=== PATIENT | male | born 1975 | race Hispanic/Latino ===

== ENCOUNTER 2016-07-24 12:55 | Emergency (ER) | payer OTHER ==
[~2016-07-24] VITALS: Ht 170.2 cm; Wt 91.2 kg
[~2016-07-24 12:55] MED LIST: DIAZ2TAB PO; HYDR-4003 PO; IBUP-1827 PO
[2016-07-24 12:59] VITALS: BP 134/83; PULSE 95; RESP 16; O2SAT 99
--- NOTE | 2016-07-24 13:16 | ED.REPORT ---
HPI-Back Pain Under 40 Date of Service July 24, 2016 ED Provider: Derek García MD. Patient is a 41 year old male who presents to the ED complaining of lower back pain onset yesterday. The patient reports having some weakness but thinks it may be due to the pain. He denies losing consciousness, incontinence, fever, chills, headache or hitting his head. The patient reports he was working in a lift when it came to a sudden stop and jerked him. He was seen yesterday at the clinic and was given a shot of Toradol. The patient states he was having difficulty getting out of bed this morning. Nursing Notes Stated Complaint: BACK PAIN Chief Complaint: Back Pain or Injury Nursing Notes Reviewed: Yes Allergies: Coded Allergies: No Known Allergies (Unverified , 07/24/16) Scheduled PRN Cyclobenzaprine (Cyclobenzaprine) 5 Mg Tablet 5 MG PO HS PRN PRN Spasm General Time Seen by MD: 13:15 Chief Complaint Back pain Hx Obtained From: Patient Arrived By: Walk-in Sudden in Onset?: Yes Onset Occurred: Yesterday Symptom Duration: Since onset Recent Healthcare: No recent doctor visit, No recent hospitalization Past Medical History Past Medical History None reported. Past Surgical History None reported. Smoking History Unknown if Ever Smoker Social History Other Social History: Local resident Ambulatory Status Independent Review of Systems Constitutional: Denies: Chills, Fever Respiratory: Denies: Non-productive cough, Shortness of breath Male: Denies Incontinence Musculoskeletal: Reports: Back pain Neurologic: Reports: Weakness, Denies: Headache Complete sys rev & neg: except as marked. Physical Exam Initial Vital Signs Vital Signs (First) Date Time Temp Pulse Resp B/P Pulse Ox O2 Delivery O2 Flow Rate FiO2 07/24/16 12:59 37.2 95 16 134/83 99 Room Air Initial VS: Reviewed General/Constitutional: Awake, Alert Back: No midline vertebral tend, No CVA tenderness right lumbar paraspinal tenderness Neurologic: Oriented X3, Speech NL, No motor deficits, No sensory deficits, CN II - XII intact, Reflexes equal bilat sensation intact bilaterally in the lower extremities Respiratory / Chest: Atraumatic, Breath sounds NL, Breath sounds = bilat, No respiratory distress Cardiovascular: Heart rate NL, Regular rhythm, Heart sounds NL Lower Extremity / Pelvis / MS: Atraumatic, Full range of motion, Neurologic intact, Vascular intact strength 5/5 Head / Eyes: Atraumatic, Normocephalic, PERRL, EOMI Skin: Atraumatic, Color NL, No rash, Warm, Dry Psychiatric: Affect NL, Mood NL Re-Eval/Medical Decision Med Decision/Clinical Course In summary, patient is a generally healthy 41-year-old male, who presents with back pain in the setting of a muscle sprain type injury.. Our primary and secondary assessment reveals an awake, alert patient in no acute distress. Hemodynamically stable and afebrile. Exam reveals normal neurologic exam of the lower extremities. Given this immunocompetent, afebrile, patient's history and exam, suspect muscle strain or spasm. No concerning signs or symptoms suggestive of cauda equina, cord compression, epidural abscess or other neurologic emergency. History not suggestive of referred intraabdominal pathology or vascular emergency. There is no history of significant trauma, fever, incontinence, unexplained weight loss, cancer history, long-term steroid use or IV drug use. And given the patient's young age, I do not feel imaging is warranted at this time. Given the patient's workup, feel they are safe for discharge with conservative management. The patient was given muscular Toradol for symptom control while here in the ER. She was prescribed a limited supply of Flexeril to use at night and advised not to combine this with alcohol or other muscle relaxants/ pain medications. He will stretch, apply ice pack/hot packs and take ibuprofen for the next week. Have discussed with the patient results of workup, indications for return including: motor weakness in the lower extremities and/or bowel or bladder incontinence. Also emphasized the need for PCP follow up. They understand and agree with the plan. Re-Evaluation/Progress : Time of Eval: 13:40 Re-Evaluation/Progress Note: Discussed plan for treatment and discharge during initial interview. The patient understandsa and agrees to the plan for discharge. All questions were addressed. Counseled Regarding: Diagnosis, Lab results, Need for follow-up, When/why to return to ED Discharge & Departure Impression: Primary Impression: Back pain without sciatica Additional Impression: Low back pain Chronicity: acute Back pain laterality: right Sciatica presence: without sciatica Qualified Code: M54.5 - Low back pain Disposition: Home All VS Reviewed: Yes Condition: Stable Patient Instructions: Low Back Strain (ED) Additional Instructions: Thank you for seeking care at the emergency room. It is difficult for us to make definitive diagnoses in the ED but we believe that you are experiencing musculoskeletal back pain. Our primary goal today in the ED was to evaluate you for any life-threatening conditions. Your evaluation was reassuring. You will be discharged with a prescription for Cyclobenzaprine. Be sure to take with food and drink plenty of fluids. We advise you not to drink alcohol or drive while consuming this pain medication. You should avoid operating heavy machinery while taking the medication. You can take 600mg of Tylenol 3x a day for the next 7 days. You should follow-up with your primary doctor in the next week. You should return to the ED immediately if you develop weakness, difficulty walking, incontinence or any other concerning signs or symptoms. Thank you for letting us partake in your care today. Referrals: NOPCP (PCP) Seun Attestation Portions of this note were transcribed by Chikis Bower. I, Dr. García personally performed the history, physical exam and medical decision-making; I reviewed and confirmed the accuracy of the information in the transcribed note. Signed by: Seun Hammond, 07/24/16 and 1345 Derek García MD July 24, 2016 13:16 Marianela Bower July 24, 2016 13:37
[2016-07-24] MEDS ORDERED: CYCL5TAB PO (13:35)
[2016-07-24 13:47] VITALS: BP 134/83; PULSE 95; RESP 16; O2SAT 99
== END 2016-07-24 13:47 | disposition home or self-care (01) ==
LOC: SED 12:55
DX: S33.5XXA Sprain of ligaments of lumbar spine, initial encounter (principal); M54.5 Low back pain; X50.0XXA Overexertion from strenuous movement or load, initial encounter; Y93.89 Activity, other specified; Y92.69 Other specified industrial and construction area as the place of occurrence of the external cause; Y99.0 Civilian activity done for income or pay
CPT/HCPCS: 96372; 99283; J1885